=== PATIENT | female | born 1975 | race Caucasian/White ===

== ENCOUNTER 2018-08-01 18:25 | Emergency (ER) | payer MEDICAID ==
[~2018-08-01] VITALS: Ht 157.5 cm; Wt 43.2 kg
[2018-08-01 18:32] VITALS: BP 108/45
== END 2018-08-01 19:21 | disposition home or self-care (01) ==
LOC: ER 18:26
DX: J02.9 Acute pharyngitis, unspecified (principal); R09.82 Postnasal drip
CPT/HCPCS: 99281

== ENCOUNTER 2018-11-17 23:15 | Emergency (ER) | payer MEDICAID ==
[~2018-11-17] VITALS: Ht 160 cm; Wt 42.8 kg
[2018-11-17 23:49] VITALS: BP 149/89
[2018-11-18] MEDS ORDERED: LORazepam 1 MG tablet PO ONE (00:20)
== END 2018-11-18 00:54 | disposition home or self-care (01) ==
LOC: ER 23:16
DX: F41.9 Anxiety disorder, unspecified (principal); F32.9 Major depressive disorder, single episode, unspecified
CPT/HCPCS: 99284

== ENCOUNTER 2018-12-28 15:53 | Emergency (ER) | payer MEDICAID ==
[~2018-12-28] VITALS: Ht 160 cm; Wt 43.0 kg
[2018-12-28 16:24] VITALS: BP 112/55
[2018-12-28] MEDS ORDERED: LORazepam 1 MG tablet PO ONE (17:30)
[2018-12-28] MEDS ORDERED: HYDR-3686 PO (17:43)
== END 2018-12-28 18:15 | disposition home or self-care (01) ==
LOC: ER 15:53
DX: F41.9 Anxiety disorder, unspecified (principal); F32.9 Major depressive disorder, single episode, unspecified; Z79.899 Other long term (current) drug therapy
CPT/HCPCS: 99284

== ENCOUNTER 2020-11-06 04:16 | Emergency (ER) | payer MEDICAID ==
[~2020-11-06] VITALS: Ht 167.6 cm; Wt 54.5 kg
--- NOTE | 2020-11-06 04:31 | NUR ---
PT REMAINS HYSTERICAL WHEN TALKING WITH PA. STATES SHE DOES NOT DO DRUGS OR DRINK ALCOHOL. STATES HER DAUGHTER IS HAVING A BABY AND "SHE TOOK AWAY MY GRANDBABY".
[2020-11-06] MEDS ORDERED: LORazepam 2 mg/ml vial IM ONE (04:35)
[2020-11-06 06:36] VITALS: BP 102/66
--- NOTE | 2020-11-06 06:51 | NUR ---
attempted to call ride, no answer
--- NOTE | 2020-11-06 07:04 | NUR ---
pt unable to give me another phone number. dalled daughter with no answer. message left.
--- NOTE | 2020-11-06 07:48 | NUR ---
attempted to call ride again. pt alert calling on her phone too with no answer. stuart called for pt to take back home. pt states she has keys.
== END 2020-11-06 07:50 | disposition home or self-care (01) ==
LOC: ER 04:16
DX: F41.0 Panic disorder [episodic paroxysmal anxiety] (principal); F41.9 Anxiety disorder, unspecified; R10.84 Generalized abdominal pain
CPT/HCPCS: 96372; 99283; J2060

== ENCOUNTER 2020-12-30 02:43 | Emergency (ER) | payer MEDICAID ==
[~2020-12-30] VITALS: Ht 162.6 cm; Wt 45.0 kg
[2020-12-30] MEDS ORDERED: aspirin 81mg tab.chew PO ONE (03:10)
[2020-12-30] MEDS ORDERED: dexamethasone 4mg tablet PO ONE (03:10)
[2020-12-30] MEDS ORDERED: diphenhydrAMINE 25mg capsule PO ONE (03:10)
[2020-12-30 03:20] LABS: BASOPHILS % (AUTO) 0.5 % (0-1); EOSINOPHILS # (AUTO) 0.2 X10'3 (0-0.9); EOSINOPHILS % (AUTO) 2.6 % (0-6); HEMOGLOBIN 12.9 g/dl (12.0-16.0); LYMPHOCYTES # (AUTO) 2.8 X10'3 (1.1-4.8); LYMPHOCYTES % (AUTO) 45.9 % (21-51); MEAN CORPUSCULAR HEMOGLOBIN 31.5 PG (27.0-31.0); MEAN CORPUSCULAR VOLUME 92.6 FL (78-98); MEAN PLATELET VOLUME 9.6 FL (7.4-10.4); MONOCYTES # (AUTO) 0.7 X10'3 (0-0.9); MONOCYTES % (AUTO) 10.5 % (2-12); NEUTROPHILS # (AUTO) 2.5 X10'3 (1.8-7.7); NEUTROPHILS % (AUTO) 40.5 % (42-75); PLATELET COUNT 192 X10'3 (140-440); RED CELL DISTRIBUTION WIDTH 13.6 % (11.5-14.5); WHITE BLOOD COUNT 6.2 X10'3 (4.5-11.0)
[2020-12-30] MEDS ORDERED: famotidine 10mg tablet PO SCH ×2 (03:25→08:00)
[2020-12-30] MEDS ORDERED: famotidine 20mg tablet PO ONE (03:30)
[2020-12-30 03:37] LABS: ALANINE AMINOTRANSFERASE 18 U/L (12-78); ALBUMIN/GLOBULIN RATIO 1.1 (1.1-1.5); ALKALINE PHOSPHATASE 50 IU/L (46-116); ANION GAP 11 (8-16); ASPARTATE AMINO TRANSFERASE 16 U/L (10-37); BLOOD UREA NITROGEN 18 MG/DL (7-18); BUN/CREATININE RATIO 26.9 (6.6-38.0); CALCIUM 8.5 MG/DL (8.5-10.1); CHLORIDE 106 MMOL/L (99-107); CREATININE 0.67 MG/DL (0.40-0.90); GLUCOSE 90 MG/DL (70-104); POTASSIUM 3.9 MMOL/L (3.5-5.1); SODIUM 138 MMOL/L (135-145); TOTAL CARBON DIOXIDE 21.5 MMOL/L (24-32); TOTAL PROTEIN 7.5 G/DL (6.4-8.2); eGFR > 90 ML/MIN
[2020-12-30 04:26] VITALS: BP 132/77
--- NOTE | 2020-12-30 04:47 | NUR ---
HIVES HAVE PRETTY MUCH RESOLVED. PT STATES SHE FEELS "FINE" NOW. PT AMBULATED TO RESTROOM.
== END 2020-12-30 06:56 | disposition home or self-care (01) ==
LOC: ER 02:45
DX: R21 Rash and other nonspecific skin eruption (principal); T45.0X5A Adverse effect of antiallergic and antiemetic drugs, initial encounter; R53.1 Weakness; R07.89 Other chest pain; R42 Dizziness and giddiness; Y92.89 Other specified places as the place of occurrence of the external cause
CPT/HCPCS: 36415; 71045; 80053; 83880; 84484; 85025; 93005; 99285; Q0163

== ENCOUNTER 2021-10-25 16:25 | Emergency (ER) | payer MEDICAID ==
[~2021-10-25] VITALS: Ht 160 cm; Wt 46.8 kg
[2021-10-25 16:33] VITALS: BP 117/65
[2021-10-25 17:42] LABS: BASOPHILS % (AUTO) 0.6 % (0-1); EOSINOPHILS # (AUTO) 0.1 X10'3 (0-0.9); EOSINOPHILS % (AUTO) 1.3 % (0-6); HEMATOCRIT 38.3 % (35.0-45.0); HEMOGLOBIN 13.1 g/dl (12.0-16.0); LYMPHOCYTES # (AUTO) 1.8 X10'3 (1.1-4.8); LYMPHOCYTES % (AUTO) 33.2 % (21-51); MEAN CORPUSCULAR HEMOGLOBIN 31.7 PG (27.0-31.0); MEAN CORPUSCULAR HGB CONC 34.2 g/dL (33.0-36.5); MEAN CORPUSCULAR VOLUME 92.6 FL (78-98); MEAN PLATELET VOLUME 9.4 FL (7.4-10.4); MONOCYTES # (AUTO) 0.6 X10'3 (0-0.9); MONOCYTES % (AUTO) 10.7 % (2-12); NEUTROPHILS # (AUTO) 2.9 X10'3 (1.8-7.7); NEUTROPHILS % (AUTO) 54.2 % (42-75); PLATELET COUNT 203 X10'3 (140-440); RED BLOOD COUNT 4.14 X10'6 (4.20-5.60); WHITE BLOOD COUNT 5.4 X10'3 (4.5-11.0)
[2021-10-25 17:54] LABS: ALANINE AMINOTRANSFERASE 15 U/L (12-78); ALBUMIN 3.8 G/DL (3.4-5.0); ALKALINE PHOSPHATASE 46 IU/L (46-116); ANION GAP 13 (8-16); ASPARTATE AMINO TRANSFERASE 16 U/L (10-37); BILIRUBIN,TOTAL 1.9 MG/DL (0.1-1.0); BLOOD UREA NITROGEN 17 MG/DL (7-18); BUN/CREATININE RATIO 15.5 (6.6-38.0); CALCIUM 9.1 MG/DL (8.5-10.1); CHLORIDE 104 MMOL/L (99-107); GLUCOSE 98 MG/DL (70-104); POTASSIUM 4.1 MMOL/L (3.5-5.1); SODIUM 139 MMOL/L (135-145); TOTAL PROTEIN 7.5 G/DL (6.4-8.2); eGFR 53 ML/MIN
[2021-10-25 18:05] LABS: BETA HCG,QUANTITATIVE < 1.0 mIU/ml
== END 2021-10-25 20:34 | disposition home or self-care (01) ==
LOC: ER 16:26
DX: R20.2 Paresthesia of skin (principal); R21 Rash and other nonspecific skin eruption
CPT/HCPCS: 36415; 80053; 83735; 84443; 84702; 85025; 99283

== ENCOUNTER 2022-05-03 20:45 | Emergency (ER) | payer MEDICAID ==
[~2022-05-03] VITALS: Ht 160 cm; Wt 49.0 kg
[2022-05-03 21:02] VITALS: BP 127/73
[2022-05-03] MEDS ORDERED: IBUP-860 PO (23:10)
[2022-05-03] MEDS ORDERED: DICL100G30 TOP (23:10)
[2022-05-03] MEDS ORDERED: ibuprofen tablet 400 MG TABLET PO ONE (23:10)
[2022-05-03] MEDS ORDERED: PRED5TAB PO (23:10)
== END 2022-05-03 23:32 | disposition home or self-care (01) ==
LOC: ER 20:46
DX: M25.562 Pain in left knee (principal); X58.XXXA Exposure to other specified factors, initial encounter; Y93.89 Activity, other specified; Y92.89 Other specified places as the place of occurrence of the external cause; Y99.8 Other external cause status
CPT/HCPCS: 73564; 99283

== ENCOUNTER 2022-05-29 23:01 | Emergency (ER) | payer MEDICAID ==
[~2022-05-29] VITALS: Ht 160 cm; Wt 42.0 kg
[~2022-05-29 23:01] MED LIST: DICL100G30 TOP; IBUP-860 PO; PRED5TAB PO
[2022-05-29 23:37] VITALS: BP 132/82
== END 2022-05-30 03:43 | disposition left against medical advice (07) ==
LOC: ER 23:04
DX: Z53.21 Procedure and treatment not carried out due to patient leaving prior to being seen by health care provider (principal); T19.2XXA Foreign body in vulva and vagina, initial encounter; Y93.89 Activity, other specified; Y92.89 Other specified places as the place of occurrence of the external cause; Y99.8 Other external cause status

== ENCOUNTER 2023-07-06 22:44 | Emergency (ER) | payer MEDICAID ==
[~2023-07-06] VITALS: Ht 157.5 cm; Wt 49.1 kg
[~2023-07-06 22:44] MED LIST changes: -DICL100G30 TOP; +DICL100G59 TOP
[2023-07-06] MEDS ORDERED: NO HOME MEDS (23:02)
[2023-07-06] MEDS ORDERED: normal saline 1000ml 1,000 ML IV ONE (23:10)
[2023-07-06 23:44] LABS: HEMOGLOBIN 14.4 g/dl (12.0-16.0)
[2023-07-06 23:46] LABS: BASOPHILS # (AUTO) 0.1 X10'3 (0-0.2); BASOPHILS % (AUTO) 1.1 % (0-1); EOSINOPHILS # (AUTO) 0.1 X10'3 (0-0.9); EOSINOPHILS % (AUTO) 1.4 % (0-6); HEMATOCRIT 42.2 % (35.0-45.0); LYMPHOCYTES # (AUTO) 2.6 X10'3 (1.1-4.8); LYMPHOCYTES % (AUTO) 38.1 % (21-51); MEAN CORPUSCULAR HEMOGLOBIN 31.4 PG (27.0-31.0); MEAN CORPUSCULAR HGB CONC 34.1 g/dL (33.0-36.5); MEAN PLATELET VOLUME 9.4 FL (7.4-10.4); MONOCYTES # (AUTO) 0.6 X10'3 (0-0.9); MONOCYTES % (AUTO) 8.5 % (2-12); NEUTROPHILS # (AUTO) 3.5 X10'3 (1.8-7.7); NEUTROPHILS % (AUTO) 50.9 % (42-75); PLATELET COUNT 233 X10'3 (140-440); RED BLOOD COUNT 4.59 X10'6 (4.20-5.60); RED CELL DISTRIBUTION WIDTH 13.4 % (11.5-14.5); WHITE BLOOD COUNT 6.8 X10'3 (4.5-11.0)
[2023-07-06 23:59] LABS: ALANINE AMINOTRANSFERASE 20 U/L (12-78); ALBUMIN 4.3 G/DL (3.4-5.0); ALKALINE PHOSPHATASE 76 IU/L (46-116); ANION GAP 10 (8-16); ASPARTATE AMINO TRANSFERASE 19 U/L (10-37); BILIRUBIN,TOTAL 2.2 MG/DL (0.1-1.0); BLOOD UREA NITROGEN 17 MG/DL (7-18); BUN/CREATININE RATIO 26.6 (10.0-20.0); CALCIUM 9.4 MG/DL (8.5-10.1); CHLORIDE 105 MMOL/L (99-107); CREATININE 0.64 MG/DL (0.40-0.90); GLUCOSE 109 MG/DL (70-104); POTASSIUM 3.6 MMOL/L (3.5-5.1); SODIUM 138 MMOL/L (135-145); TOTAL CARBON DIOXIDE 22.7 MMOL/L (24-32); TOTAL PROTEIN 8.6 G/DL (6.4-8.2); eCRCL 84 ML/MIN; eGFR > 90 ML/MIN
[2023-07-07 00:08] LABS: THYROID STIMULATING HORMONE 1.13 ulU/ml (0.34-4.50)
[2023-07-07 00:20] LABS: ETHANOL < 10 MG/DL (<10)
[2023-07-07] MEDS ORDERED: diazepam inj 5 MG/ML inj. IV ONE (00:35)
[2023-07-07] MEDS ORDERED: normal saline 1000ml 1,000 ML IV ONE (01:05)
[2023-07-07 04:05] LABS: URINE HCG NEGATIVE (NEG)
[2023-07-07 04:13] LABS: BILIRUBIN,URINE NEGATIVE (Neg); CLARITY,URINE SLIGHTLY CLOUDY (Clear); COLOR,URINE YELLOW (Yellow); GLUCOSE, URINE NEGATIVE (Neg); KETONES,URINE TRACE mg/dl (Neg); LEUKOCYTE ESTERASE ,URINE MODERATE (Neg); NITRITES, URINE NEGATIVE (Neg); OCCULT BLOOD,URINE SMALL (Neg); PROTEIN,URINE NEGATIVE (Neg); UROBILINOGEN,URINE 0.2 E.U/dL (0.2-1.0)
[2023-07-07 04:15] LABS: URINE AMPHETAMINE SCREEN NEGATIVE (Neg); URINE BARBITUATE SCREEN NEGATIVE (Neg); URINE BENZODIAZEPINES SCREEN POSITIVE (Neg); URINE CANNABINOID SCREEN NEGATIVE (Neg); URINE COCAINE SCREEN NEGATIVE (Neg); URINE METHADONE SCREEN NEGATIVE (Neg); URINE OPIATE SCREEN NEGATIVE (Neg); URINE PHENCYCLIDINE SCREEN NEGATIVE (Neg)
[2023-07-07 04:19] LABS: UA COLLECTION TYPE CLN CATCH MIDSTREAM
[2023-07-07 04:29] LABS: BACTERIA,URINE 1+ /HPF (Neg); MUCUS STRANDS NONE SEEN /LPF (Neg); SQUAMOUS EPITHELIAL CELL,UR MODERATE /LPF (FEW); TRANSITIONAL EPI CELLS,URINE MANY /HPF
[2023-07-07 04:30] LABS: WBC CLUMPS,URINE FEW /HPF (NEGATIVE)
[2023-07-07] MEDS: cephalexin 250mg capsule PO SCH (05:26)
[2023-07-07 05:28] VITALS: BP 113/75; PULSE 69; O2SAT 100
[2023-07-07 06:41] VITALS: RESP 14
[2023-07-07 14:51] VITALS: TEMP 98.7
== END 2023-07-07 14:54 | disposition home or self-care (01) ==
LOC: ER 22:45
DX: F32.A Depression, unspecified (principal); F41.9 Anxiety disorder, unspecified; Z79.899 Other long term (current) drug therapy
CPT/HCPCS: 36415; 80053; 80305; 80320; 81001; 81025; 84443; 85025; 96361; 96374; 99284; C2617; J3360; J7030

== ENCOUNTER 2023-11-07 15:39 | Emergency (ER) | payer MEDICAID ==
[~2023-11-07] VITALS: Ht 160 cm; Wt 52.4 kg
[~2023-11-07 15:39] MED LIST changes: -DICL100G59 TOP; -IBUP-860 PO; +NO HOME MEDS; -PRED5TAB PO
[2023-11-07 17:59] LABS: BILIRUBIN,URINE NEGATIVE (Neg); CLARITY,URINE SLIGHTLY CLOUDY (Clear); COLOR,URINE YELLOW (Yellow); GLUCOSE, URINE NEGATIVE (Neg); KETONES,URINE NEGATIVE (Neg); LEUKOCYTE ESTERASE ,URINE SMALL (Neg); NITRITES, URINE NEGATIVE (Neg); OCCULT BLOOD,URINE SMALL (Neg); PH,URINE 5.5 (4.8-8.0); PROTEIN,URINE NEGATIVE (Neg); UROBILINOGEN,URINE 0.2 E.U/dL (0.2-1.0)
[2023-11-07 18:01] LABS: UA COLLECTION TYPE CLN CATCH MIDSTREAM
[2023-11-07 18:16] LABS: SQUAMOUS EPITHELIAL CELL,UR MANY /LPF (FEW); WBC,URINE 30-50 /HPF (0-4)
[2023-11-07 18:17] LABS: BACTERIA,URINE 1+ /HPF (Neg); RBC,URINE 0-2 /HPF (0-2)
[2023-11-07 18:49] LABS: BASOPHILS % (AUTO) 0.6 % (0-1); EOSINOPHILS # (AUTO) 0.2 X10'3 (0-0.9); EOSINOPHILS % (AUTO) 3.5 % (0-6); LYMPHOCYTES # (AUTO) 2.2 X10'3 (1.1-4.8); LYMPHOCYTES % (AUTO) 35.6 % (21-51); MEAN CORPUSCULAR HEMOGLOBIN 31.5 PG (27.0-31.0); MEAN CORPUSCULAR HGB CONC 34.1 g/dL (33.0-36.5); MEAN CORPUSCULAR VOLUME 92.4 FL (78-98); MEAN PLATELET VOLUME 10.6 FL (7.4-10.4); MONOCYTES # (AUTO) 0.6 X10'3 (0-0.9); MONOCYTES % (AUTO) 9.7 % (2-12); NEUTROPHILS # (AUTO) 3.2 X10'3 (1.8-7.7); NEUTROPHILS % (AUTO) 50.6 % (42-75); PLATELET COUNT 193 X10'3 (140-440); RED BLOOD COUNT 4.12 X10'6 (4.20-5.60); RED CELL DISTRIBUTION WIDTH 13.8 % (11.5-14.5); WHITE BLOOD COUNT 6.3 X10'3 (4.5-11.0)
[2023-11-07 19:03] LABS: ALANINE AMINOTRANSFERASE 17 U/L (12-78); ALBUMIN 3.8 G/DL (3.4-5.0); ALKALINE PHOSPHATASE 54 IU/L (46-116); ANION GAP 7 (8-16); ASPARTATE AMINO TRANSFERASE 14 U/L (10-37); BILIRUBIN,TOTAL 1.5 MG/DL (0.1-1.0); BLOOD UREA NITROGEN 15 MG/DL (7-18); CALCIUM 8.9 MG/DL (8.5-10.1); CHLORIDE 105 MMOL/L (99-107); POTASSIUM 3.6 MMOL/L (3.5-5.1); SODIUM 138 MMOL/L (135-145); TOTAL CARBON DIOXIDE 25.7 MMOL/L (24-32); TOTAL PROTEIN 7.6 G/DL (6.4-8.2); eCRCL 95 ML/MIN; eGFR > 90 ML/MIN
[2023-11-07 19:12] LABS: LIPASE 65 U/L (16-77)
[2023-11-07 19:16] LABS: BETA HCG,QUANTITATIVE < 1.0 mIU/ml; GLUCOSE 60 MG/DL (70-104)
[2023-11-07 19:33] VITALS: BP 105/68; PULSE 73; RESP 15; TEMP 97.6; O2SAT 99
== END 2023-11-07 19:36 | disposition home or self-care (01) ==
LOC: ER 15:40
DX: R10.84 Generalized abdominal pain (principal); F41.9 Anxiety disorder, unspecified; F32.A Depression, unspecified
CPT/HCPCS: 36415; 76700; 80053; 81001; 83690; 84702; 85025; 99284